=== PATIENT | female | born 1965 | race African-American/Black ===

== ENCOUNTER 2016-09-30 10:07 | Emergency (ER) | payer MEDICARE | END 2016-09-30 12:33 | disposition home or self-care (01) | LOC: D.ER 10:07 | DX: M54.5 Low back pain (principal); M54.10 Radiculopathy, site unspecified; F41.9 Anxiety disorder, unspecified; E11.9 Type 2 diabetes mellitus without complications; I10 Essential (primary) hypertension; G25.81 Restless legs syndrome; G47.30 Sleep apnea, unspecified ==